=== PATIENT | female | born 1985 | race Caucasian/White ===

== ENCOUNTER 2019-07-11 13:36 | Outpatient (REF) | payer SELFPAY | END 2019-07-11 13:56 | LOC: LBN 13:36 | PROVIDERS: PCP Internal Medicine Hematology; Visit Provider Physician Assistant Medical | DX: R10.30 Lower abdominal pain, unspecified (principal) | CPT/HCPCS: 87480; 87510; 87660 ==

== ENCOUNTER 2019-10-21 11:52 | Emergency (ER) | payer SELFPAY ==
[2019-10-21 11:57] VITALS: BP 123/48; PULSE 78; RESP 16; TEMP 36.9; O2SAT 100
[2019-10-21 12:10] LABS: Bilirubin Negative (Negative); Blood Negative (Negative); Clarity Clear (Clear); Glucose Negative (Negative); Ketones Negative (Negative); Leukocyte Esterase Negative (Negative); Nitrite Negative (Negative); Specific Gravity 1.015 (1.005-1.025); Urobilinogen 0.2 EU/dL (Up TO 0.2)
--- NOTE | 2019-10-21 12:31 | ED.GENADUL_ITS ---
Discharge Plan Disposition Patient Disposition: HOME Condition: Stable Discharge Details Chief Complaint: Urinary Clinical Impression: Acute flank pain Primary Care Provider: Gary Knapp ED Provider: Santo Causey Home Meds and New Rx's Prescriptions: No Action No Known Home Meds RF: 0 Discharge Instructions Instructions: Flank Pain (ED) Additional Instructions: Please take acetaminophen (tylenol) - 650mg every 6 hours by mouth as needed for pain. Please contact your primary care physician to arrange follow-up.Call on Tuesday. Return to the ER for any worsening or new concerning symptoms or if you feel further diagnostic workup is warranted. Medical Decision Making 33-year-old female here with left flank discomfort for the past 3-4 days. Does not currently have urinary symptoms but did have some discomfort with urination prior to recent menses 2 weeks ago. Vitals are within normal limits. Exam is reassuring. Patient has no abnormal vaginal discharge, vaginal bleeding, vaginal pain or any other indication for pelvic exam. I considered urinary tract infection: Urinalysis is completely negative with no indication of UTI. I will send urine culture given symptoms. I discussed treatment plan with patient and determined that we would wait for urine culture results to determine if antibiotics are needed. I discussed with the patient potential for other etiologies for discomfort and recommended diagnostic imaging including CT imaging to assess for potential mass or renal stone. Patient provided informed refusal of diagnostic imaging. She notes she would prefer to give it a few more days and follow-up with PCP. I did encourage her to return immediately should symptoms worsen or she develop new co ncerning symptoms or if she would like to pursue additional recommended diagnostics. HPI General Mode of arrival: ambulatory . Date/Time Provider Initiated Documentation: 10/21/19 12:11 . Limitations to Documentation: no limitations . Information obtained by: patient . HPI Narrative: 33-year-old female presents with chief complaint of flank pain. Patient notes pain started 3 to 4 days ago and has persisted. Pain was initially moderate and is now mild. Pain localized to left flank. Pain is described as a light burning ache. No associate abdominal pain. No associated dysuria or hematuria. No increased urinary frequency. No nausea or vomiting. No recent weight loss. Patient notes that she did have some urinary symptoms including discomfort with urination about 2 weeks ago prior to her period. Symptoms resolved with onset of period. She notes normal menstrual flow. She denies abnormal vaginal discharge. No vaginal or pelvic pain. Related Data Home Medications Medication Instructions Recorded Confirmed Unknown [No Known Home Meds] 10/21/19 10/21/19 Allergies Allergy/AdvReac Type Severity Reaction Status Date / Time amoxicillin trihydrate AdvReac Intermediate diarrhea Unverified 10/21/19 12:03 [From Augmentin] Penicillins AdvReac Intermediate really bad Unverified 10/21/19 12:03 yeast infection potassium clavulanate AdvReac Intermediate diarrhea Unverified 10/21/19 12:03 [From Augmentin] General Stated Complaint: Urinary BETHANY: 3 Review of Systems All systems reviewed & are unremarkable except as noted in HPI and below Constitutional Constitutional: Denies fever(s) Gastrointestinal Gastrointestinal: Denies diarrhea, Denies nausea and Denies vomiting Genitourinary Genitourinary: Reports as per HPI, Denies abnormal vaginal bleeding, Denies menorrhagia, Denies urinary urgency and Denies vaginal discharge PFSH Social History Smoking/Tobacco Use Status: Never Alcohol Intake: current Alcohol Intake frequency: a few times a week Drug use: Never Substance use type: does not use Do you feel safe at home: Yes Do you feel safe in your relationship?: Yes Exam Const General: cooperative and no acute distress HENMT Mouth: moist mucous membranes Eyes Conjunctivae: normal conjunctivae Sclera: normal sclerae EOM: EOM intact bilaterally Neck Neck: trachea midline and supple Resp Auscultation: clear to auscultation bilaterally, no rales, no rhonchi and no wheezes Cardio Jugular venous pressure: no JVD Rate: regular rate and not tachycardic Rhythm: regular rhythm GI Palpation: soft, not firm, no guarding, no masses, not rigid and nontender Back/Spine/Pelvis Back: no CVA tenderness Skin General skin exam: no rashes or lesions noted Neuro General: patient alert, patient awake and tone normal Extrem General: no edema Psych Appearance: grossly normal Mental Status: mental status grossly normal Course Vital Signs Vital signs: Vital Signs Temperature 36.9 C 10/21/19 11:57 Pulse 78 10/21/19 11:57 Respiratory Rate 16 10/21/19 11:57 Blood Pressure 123/48 L 10/21/19 11:57 Pulse Oximetry 100 10/21/19 11:57 Temperature 36.9 C 10/21/19 11:57 Temperature Source Temporal Artery Scan 10/21/19 11:57 Pulse 78 10/21/19 11:57 Respiratory Rate 16 10/21/19 11:57 Respiratory Effort Non-Labored 10/21/19 12:05 Blood Pressure 123/48 L 10/21/19 11:57 Blood Pressure Position Sitting 10/21/19 11:57 Pulse Oximetry 100 10/21/19 11:57 Oxygen Delivery Method Room Air 10/21/19 11:57 Oxygen Flow Rate 0 10/21/19 11:57 Pain Level 2 10/21/19 12:05 Lab/Test Results Lab/Test Results: Laboratory Tests Range/Units 10/21/19 11:59 Urine Color (Yellow) Yellow Urine Clarity (Clear) Clear Urine pH (5-8) 7.0 Ur Specific [place] (1.005-1.025) 1.015 Urine Protein (Negative) mg/dL Negative Urine Ketones (Negative) mg/dL Negative Urine Blood (Negative) Negative Urine Nitrite (Negative) Negative Urine Bilirubin (Negative) Negative Urine Urobilinogen (Up TO 0.2) EU/dL 0.2 Ur Leukocyte Esterase (Negative) Negative Urine Glucose (Negative) mg/dL Negative POC- Test(urine) Negative
== END 2019-10-21 12:41 | disposition home or self-care (01) ==
PROVIDERS: Emergency Provider Student in an Organized Health Care Education/Training Program; PCP Internal Medicine Hematology
DX: M54.5 Low back pain (principal)
CPT/HCPCS: 81025; 99282; 81003; 87086

== ENCOUNTER 2019-10-29 13:41 | Emergency (ER) | payer SELFPAY ==
[2019-10-29] VITALS (47 sets, daily range): BP systolic 67–129; BP diastolic 29–88; PULSE 67–115; RESP 14–31; TEMP 36.6; O2SAT 98–100
--- NOTE | 2019-10-29 14:00 | DI.RAD_ITS ---
EXAM: XR PORTABLE CHEST AP CLINICAL HISTORY: chest pressure/sob TECHNIQUE: 2D digital imaging was performed. COMPARISON: No exams were available for comparison FINDINGS: MEDIASTINUM: Normal. HEART: Normal. PULMONARY VASCULATURE: Normal. LUNGS: Clear. PLEURAL SPACE: No pleural effusion or pneumothorax. BONE:Normal. OTHER FINDINGS:Normal. IMPRESSION: No acute pulmonary findings. DATA REPOSITORY: RADIATION DOSE DELIVERED:
[2019-10-29 14:25] LABS: Abs Immature Grans 0.04 k/cumm (0.0-0.09); Absolute Basophil Count 0.02 k/cumm (0.0-0.2); Absolute Eosinophil Count 0.04 k/cumm (0.0-0.7); Absolute Lymphocyte Count 1.86 k/cumm (1.2-3.4); Basophils % 0.2; Eosinophils % 0.4; HCT 41.8 % (36.0-46.0); HGB 14.4 g/dL (12.0-15.5); Immature Grans % 0.4 %; Lymphocytes % 19.7; Mean Corp. HGB Concentration 34.4 g/dL (32.0-36.0); Mean Corpuscular Hemoglobin 29.9 pg (27.0-33.0); Mean Corpuscular Volume 86.9 fL (80-95); Mean Platelet Volume 10.1 fL (8.0-11.0); Monocytes % 5.3; Platelet Count 328 x1000/uL (130-400); RBC 4.81 m/cumm (4.00-5.20); RBC Distribution Width 11.8 % (11.7-14.6); White Blood Cell Count 9.46 k/cumm (4.4-10.8)
[2019-10-29 14:31] LABS: Bilirubin Negative (Negative); Blood Negative (Negative); Clarity Clear (Clear); Glucose Negative (Negative); Ketones Trace mg/dL (Negative); Leukocyte Esterase Negative (Negative); Nitrite Negative (Negative); Urobilinogen 0.2 EU/dL (Up TO 0.2); pH 6.5 (5-8)
[2019-10-29 14:37] LABS: ALT 23 U/L (14-59); AST 20 U/L (15-37); Albumin 4.5 g/dL (3.4-5.0); Alkaline Phosphatase 77 U/L (46-116); Anion Gap 11.3 mmol/L (3-11); BUN 10 mg/dL (7-18); Bilirubin, Total 1.1 mg/dL (0.2-1.0); CO2 24.7 mmol/L (21.0-32.0); CREATININE 0.98 mg/dL (0.55-1.02); Calcium 9.4 mg/dL (8.5-10.1); Chloride 101 mmol/L (98-107); Glucose 92 mg/dL (74-106); Magnesium 2.3 mg/dL (1.8-2.4); Potassium 3.3 mmol/L (3.5-5.1); Sodium 137 mmol/L (136-145); Total Protein 7.7 g/dL (6.4-8.2); Troponin I < 0.05 ng/Ml (<0.06)
[2019-10-29 14:53] LABS: D-Dimer 174 ng/mlFEU (<500)
[2019-10-29] MEDS: Normal Saline 1,000 ML 1000 ML IV (16:00)
--- NOTE | 2019-10-29 16:07 | ED.GENADUL_ITS ---
Discharge Plan Disposition Patient Disposition: HOME Condition: Good Discharge Details Chief Complaint: SOB Clinical Impression: Chest pain, Shortness of breath Primary Care Provider: Gary Knapp ED Provider: Randa Vega Home Meds and New Rx's Prescriptions: No Action No Known Home Meds RF: 0 Discharge Instructions Instructions: Chest Pain (ED), Dyspnea (ED) Additional Instructions: Your laboratory evaluation was reassuring today. However, and remain concerned regarding your chest pain associated with recent cocaine use. You will need an outpatient stress test. This will be ordered. They should call you tomorrow to schedule follow-up appointment. If you develop recurrent discomfort, difficulty breathing or other new/worsening symptom please seek care urgently once again. Please stop using cocaine. Please follow-up with primary care at the end of the week for reevaluation. with shortness of breath, you have a pending COVID 19 test. Test will be performed tomorrow in the red tent. You will be contacted in the morning to schedule appointment time. Until results are obtained, please quarantine yourself. Develop new or worsening symptoms please seek care urgently once again. Stand Alone Forms: POSITIVE COVID-19/TO BE TESTED Referrals: Gary Knapp [Primary Care Provider] - Discharge Data Discharge Date/Time-TO BE ENTERED AT DEPARTURE: 10/29/19 18:16 Medical Decision Making <PEDRO Gutierrez - Last Filed: 10/30/19 16:10> 33-year-old female, no past medical history, began snorting cocaine over the past 2 weeks, comes into the ER reporting 4-day history of dull anterior chest dullness now with shortness of breath over the last 2 days. Patient appears well, nontoxic. She is slightly anxious. Patient outside of using cocaine has no other cardiac risk factors. She is not on hormone therapy. Given her mild tachycardia will order d-dimer to her rule out PE although low suspicion. We did have a discussion regarding her cocaine use, vasospasms, chest pain, etc. She understands the gravity of the situation. Will initiate cardiac work-up including chest x-ray. Given her subjective complaint of shortness of breath will make her a person of interest and will set her up with COVID testing tomorrow. Low suspicion for infectious process. Patient is satting 100% on room air. Lungs are clear to auscultation. There is no cough. Will not initiate aspirin therapy as lower suspicion for ACS. I do question if this is multifactorial, she has been seen in the ER twice in the past 8 days after using cocaine, she does appear anxious. Heart rate is noted to be 80 on the monitors. I do question if her anxiety was driven by evaluation with nurses and provider in a mask, gown, full protective gear. Laboratory values reveal a white count of 9.46 hemoglobin 14.4 hematocrit 41.8 platelet count 328. Sodium 137 potassium 3.3 creatinine 0.98 GFR greater than 60. Total bili is 1.1. Abdomen is soft, nontender LFTs are unremarkable. Urinalysis reveals trace ketones, POC is negative. Troponin is less than 0.05. D-dimer 174. Chest x-ray is unremarkable. Upon reevaluation patient is using her cell phone without difficulty. She appears well, nontoxic and no longer anxious. We discussed our options. Patient is agreeable to waiting in the ER and having a 3-hour repeat troponin and EKG. Medical Records Medical records reviewed: Yes I reviewed the patient's medical records. Imaging Data Radiologic Study: Attestation: I personally reviewed and interpreted this imaging study as follows: Imaging: X-Ray Radiologist's impression: Initially read by me as negative, confirmed by radiology. Lab Data Lab results reviewed: Yes I reviewed the patient's lab results. Lab results narrative: Laboratory Tests Range/Units 10/29/19 10/29/19 10/29/19 13:57 13:57 13:57 WBC (4.4-10.8) k/cumm 9.46 RBC (4.00-5.20) m/cumm 4.81 Hgb (12.0-15.5) g/dL 14.4 Hct (36.0-46.0) % 41.8 MCV (80-95) fL 86.9 MCH (27.0-33.0) pg 29.9 MCHC (32.0-36.0) g/dL 34.4 RDW (11.7-14.6) % 11.8 Plt Count (130-400) x1000/uL 328 MPV (8.0-11.0) fL 10.1 Immature Gran % % 0.4 Neutrophils % 74.0 Lymphocytes % 19.7 Monocytes % 5.3 Eosinophils % 0.4 Basophils % 0.2 Absolute Neutrophils (1.2-6.7) k/cumm 7.00 H Absolute Lymphocytes (1.2-3.4) k/cumm 1.86 Absolute Monocytes (0.11-0.7) k/cumm 0.50 Absolute Eosinophils (0.0-0.7) k/cumm 0.04 Absolute Basophils (0.0-0.2) k/cumm 0.02 D-Dimer (<500) ng/mlFEU 174 Sodium (136-145) mmol/L 137 Potassium (3.5-5.1) mmol/L 3.3 L Chloride (98-107) mmol/L 101 Carbon Dioxide (21.0-32.0) mmol/L 24.7 Anion Gap (3-11) mmol/L 11.3 H BUN (7-18) mg/dL 10 Creatinine (0.55-1.02) mg/dL 0.98 Estimated GFR/1.73 m2 (mL/min/1.73m2) >= 60.00 Glucose (74-106) mg/dL 92 Calcium (8.5-10.1) mg/dL 9.4 Magnesium (1.8-2.4) mg/dL 2.3 Total Bilirubin (0.2-1.0) mg/dL 1.1 H AST (15-37) U/L 20 ALT (14-59) U/L 23 Alkaline Phosphatase (46-116) U/L 77 Troponin I (<0.06) ng/Ml < 0.05 Total Protein (6.4-8.2) g/dL 7.7 Albumin (3.4-5.0) g/dL 4.5 Urine Color (Yellow) Urine Clarity (Clear) Urine pH (5-8) Ur Specific [place] (1.005-1.025) Urine Protein (Negative) mg/dL Urine Ketones (Negative) mg/dL Urine Blood (Negative) Urine Nitrite (Negative) Urine Bilirubin (Negative) Urine Urobilinogen (Up TO 0.2) EU/dL Ur Leukocyte Esterase (Negative) Urine Glucose (Negative) mg/dL Range/Units 10/29/19 14:12 WBC (4.4-10.8) k/cumm RBC (4.00-5.20) m/cumm Hgb (12.0-15.5) g/dL Hct (36.0-46.0) % MCV (80-95) fL MCH (27.0-33.0) pg MCHC (32.0-36.0) g/dL RDW (11.7-14.6) % Plt Count (130-400) x1000/uL MPV (8.0-11.0) fL Immature Gran % % Neutrophils % Lymphocytes % Monocytes % Eosinophils % Basophils % Absolute Neutrophils (1.2-6.7) k/cumm Absolute Lymphocytes (1.2-3.4) k/cumm Absolute Monocytes (0.11-0.7) k/cumm Absolute Eosinophils (0.0-0.7) k/cumm Absolute Basophils (0.0-0.2) k/cumm D-Dimer (<500) ng/mlFEU Sodium (136-145) mmol/L Potassium (3.5-5.1) mmol/L Chloride (98-107) mmol/L Carbon Dioxide (21.0-32.0) mmol/L Anion Gap (3-11) mmol/L BUN (7-18) mg/dL Creatinine (0.55-1.02) mg/dL Estimated GFR/1.73 m2 (mL/min/1.73m2) Glucose (74-106) mg/dL Calcium (8.5-10.1) mg/dL Magnesium (1.8-2.4) mg/dL Total Bilirubin (0.2-1.0) mg/dL AST (15-37) U/L ALT (14-59) U/L Alkaline Phosphatase (46-116) U/L Troponin I (<0.06) ng/Ml Total Protein (6.4-8.2) g/dL Albumin (3.4-5.0) g/dL Urine Color (Yellow) Yellow Urine Clarity (Clear) Clear Urine pH (5-8) 6.5 Ur Specific [place] (1.005-1.025) 1.010 Urine Protein (Negative) mg/dL Negative Urine Ketones (Negative) mg/dL Trace H Urine Blood (Negative) Negative Urine Nitrite (Negative) Negative Urine Bilirubin (Negative) Negative Urine Urobilinogen (Up TO 0.2) EU/dL 0.2 Ur Leukocyte Esterase (Negative) Negative Urine Glucose (Negative) mg/dL Negative ECG Data Attestation: I personally reviewed and interpreted this ECG (s) as follows: Interpretation: EKG performed at 1349. Reveals sinus tachycardia, short DE syndrome of 92. Ventricular rate of 103. There is an incomplete right bundle branch block but no acute ST elevation or depression segments. EKG was reviewed interpreted with Dr. Causey <Jacey Causey MD - Last Filed: 10/29/19 18:03> I, Jacey Causey, seen and examined the patient. I concur with the findings as documented by the PA; please see initial history and physical. Agree with plan outpatient follow-up with patient, testing, outpatient stress test. I had a lengthy discussion with Patient regarding return to emergency department precautions, home care, and importance of outpatient follow-up. Pt verbalizes understanding of the plan and is amenable. Patient discharged to home with clear plan for outpatient follow-up. All questions were answered. Disposition decision was made weighing the risks and benefits of hospitalization versus outpatient treatment, the risk for further decompensation, and the patient's wishes. Medical Records Medical records reviewed: Yes I reviewed the patient's medical records. Lab Data Lab results reviewed: Yes I reviewed the patient's lab results. ECG Data Attestation: I personally reviewed and interpreted this ECG (s) as follows: Interpretation: EKG shows sinus rhythm 85, normal axis, no major change from prior, no STEMI, nondiagnostic EKG <PEDRO Albarado - Last Filed: 10/29/19 21:34> Care transition to myself from John Allen PA-C with repeat troponin and repeat EKG pending. In brief, patient presented today, 1 week after cocaine use, with chief complaint of chest discomfort 4 days ago and shortness of breath x2 days. She states that she is been asymptomatic thus far today. She was notably anxious when initially examined. Aside from the recent cocaine use, no other cardiac risk factors. Patient denies routine cocaine use. Patient's labs reveal negative d-dimer, minimally low potassium at 3.3, troponin less than 0.05?2. EKG reviewed by Dr. Causey without significant abnormality. No ischemic changes are noted. Discussed these findings with the patient. With the recent cocaine use, plan for outpatient stress test. With the shortness of breath, John Allen had ordered outpatient COVID-19 testing. By the time of discharge, she is asymptomatic. She will quarantine until results are back from her [facility] testing. She is given return precautions. She will be contacted tomorrow from the COVID testing tent as well as scheduling for outpatient stress test. I encouraged that she call primary care to schedule follow-up appointment this week. I encourage cessation from cocaine use. All of her questions and concerns were addressed and she is in agreement with this plan. HPI <PEDRO Gutierrez - Last Filed: 10/30/19 16:10> General Mode of arrival: ambulatory . Date/Time Provider Initiated Documentation: 10/29/19 13:45 . Limitations to Documentation: no limitations . Information obtained by: patient . HPI Narrative: This is a 33-year-old female who denies any past medical history. She was seen in the ER 8 days ago for flank pain but that has resolved completely. She reports 4 days ago she noticed a anterior chest dullness,. She reports is not necessarily really painful but more aching in nature. Nothing makes it worse or better. It comes intermittently. Now over the past 2 days she reports mild shortness of breath that come sporadically, nothing she can do to make it worse or better. She den ies any headache, neck pain, recent travel or sick contact, cough, abdominal pain, back pain, nausea, vomiting, numbness, tingling, weakness. She has never had these symptoms before. She denies any cardiac history in her family. Patient does admit that she and her started to experiment with cocaine over the past 2 weeks, she believes the last time she uses roughly 1 week ago. She denies any other drug use, denies any IV drug use. She denies smoking cigarettes but does occasionally use marijuana. She has not on any hormone therapy. Denies any pain or swelling in her legs. Related Data Home Medications Medication Instructions Recorded Confirmed Unknown [No Known Home Meds] 10/21/19 10/29/19 Allergies Allergy/AdvReac Type Severity Reaction Status Date / Time amoxicillin trihydrate AdvReac Intermediate diarrhea Unverified 10/29/19 13:52 [From Augmentin] Penicillins AdvReac Intermediate really bad Unverified 10/29/19 13:52 yeast infection potassium clavulanate AdvReac Intermediate diarrhea Unverified 10/29/19 13:52 [From Augmentin] General Stated Complaint: SOB BETHANY: 3 Review of Systems <PEDRO Gutierrez - Last Filed: 10/30/19 16:10> Constitutional Constitutional: Denies fatigue, Denies fever(s) and Denies weakness ENT Ears, Nose, Mouth, and Throat: Denies dizziness Cardiovascular Cardiovascular: Reports chest pain and Reports dyspnea Respiratory Respiratory: Denies cough and Reports dyspnea Gastrointestinal Gastrointestinal: Denies abdominal pain, Denies nausea and Denies vomiting Genitourinary Genitourinary: Denies dysuria Musculoskeletal Musculoskeletal: Denies back pain, Denies numbness and Denies tingling Integumentary/Breasts Skin/Breast: Denies rash Neurologic Neurologic: Denies dizziness, Denies numbness, Denies tingling and Denies weakness Endocrine Endocrine: Denies fatigue PFSH <PEDRO Gutierrez - Last Filed: 10/30/19 16:10> Social History Smoking/Tobacco Use Status: Never Alcohol Intake: current Alcohol Intake frequency: a few times a week Drug use: Occasionally Substance use type: marijuana Do you feel safe at home: Yes Do you feel safe in your relationship?: Yes Exam <PEDRO Gutierrez - Last Filed: 10/30/19 16:10> Const General: cooperative, healthy appearing, comfortable, no acute distress and anxious (Mild) Orientation: alert, awake and oriented x3 HENMT Head: normal to inspection, normocephalic and atraumatic Ears: external ears normal, TM's normal bilaterally and EAC's normal Face and sinus: normal facial exam Mouth: moist mucous membranes Throat: posterior oropharynx normal Eyes Conjunctivae: conjunctivae normal Neck Neck: normal visual inspection, full ROM, trachea midline, supple and nontender Chest Chest: normal inspection of the chest and normal palpation of entire chest wall Resp Effort & Inspection: normal respiratory effort and able to speak in complete sentences Auscultation: clear to auscultation bilaterally Cardio Rate: tachycardic Rhythm: regular rhythm (Rate of 108) GI Palpation: soft and nontender Auscultation: normal bowel sounds Back/Spine/Pelvis Back: No back tenderness Skin General skin exam: no rashes or lesions noted Neuro General: patient alert, patient awake, patient oriented x3, moves all extremities and no focal motor deficits Gait: normal gait Motor: muscle tone normal throughout Sensory Exam: no sensory deficits noted Extrem General: normal to inspection, full ROM, capillary refill normal, no pedal edema and no calf tenderness Psych Appearance: grossly normal Mental Status: mental status grossly normal Course <PEDRO Gutierrez - Last Filed: 10/30/19 16:10> Vital Signs Vital signs: Vital Signs Temperature 36.6 C 10/29/19 13:49 Pulse 107 H 10/29/19 13:49 Respiratory Rate 18 10/29/19 13:49 Blood Pressure 124/75 10/29/19 13:49 Pulse Oximetry 100 10/29/19 13:49 Temperature 36.6 C 10/29/19 13:49 Temperature Source Skin 10/29/19 13:49 Pulse 73 10/29/19 15:46 Pulse 76 10/29/19 16:00 Respiratory Rate 18 10/29/19 16:00 Respiratory Effort Non-Labored 10/29/19 14:02 Respiratory Depth Normal 10/29/19 14:02 Respiratory Pattern Normal 10/29/19 14:02 Blood Pressure 116/73 10/29/19 15:46 Blood Pressure Mean 82 10/29/19 15:46 Blood Pressure Position Sitting 10/29/19 13:49 Pulse Oximetry 100 10/29/19 15:46 Oxygen Delivery Method Room Air 10/29/19 13:49 Oxygen Flow Rate 0 10/29/19 13:49 Pain Level 2 10/29/19 14:02 Lab/Test Results Lab/Test Results: Laboratory Tests Range/Units 10/29/19 10/29/19 10/29/19 13:57 13:57 13:57 WBC (4.4-10.8) k/cumm 9.46 RBC (4.00-5.20) m/cumm 4.81 Hgb (12.0-15.5) g/dL 14.4 Hct (36.0-46.0) % 41.8 MCV (80-95) fL 86.9 MCH (27.0-33.0) pg 29.9 MCHC (32.0-36.0) g/dL 34.4 RDW (11.7-14.6) % 11.8 Plt Count (130-400) x1000/uL 328 MPV (8.0-11.0) fL 10.1 Immature Gran % % 0.4 Neutrophils % 74.0 Lymphocytes % 19.7 Monocytes % 5.3 Eosinophils % 0.4 Basophils % 0.2 Absolute Neutrophils (1.2-6.7) k/cumm 7.00 H Absolute Lymphocytes (1.2-3.4) k/cumm 1.86 Absolute Monocytes (0.11-0.7) k/cumm 0.50 Absolute Eosinophils (0.0-0.7) k/cumm 0.04 Absolute Basophils (0.0-0.2) k/cumm 0.02 D-Dimer (<500) ng/mlFEU 174 Sodium (136-145) mmol/L 137 Potassium (3.5-5.1) mmol/L 3.3 L Chloride (98-107) mmol/L 101 Carbon Dioxide (21.0-32.0) mmol/L 24.7 Anion Gap (3-11) mmol/L 11.3 H BUN (7-18) mg/dL 10 Creatinine (0.55-1.02) mg/dL 0.98 Estimated GFR/1.73 m2 (mL/min/1.73m2) >= 60.00 Glucose (74-106) mg/dL 92 Calcium (8.5-10.1) mg/dL 9.4 Magnesium (1.8-2.4) mg/dL 2.3 Total Bilirubin (0.2-1.0) mg/dL 1.1 H AST (15-37) U/L 20 ALT (14-59) U/L 23 Alkaline Phosphatase (46-116) U/L 77 Troponin I (<0.06) ng/Ml < 0.05 Total Protein (6.4-8.2) g/dL 7.7 Albumin (3.4-5.0) g/dL 4.5 Urine Color (Yellow) Urine Clarity (Clear) Urine pH (5-8) Ur Specific [place] (1.005-1.025) Urine Protein (Negative) mg/dL Urine Ketones (Negative) mg/dL Urine Blood (Negative) Urine Nitrite (Negative) Urine Bilirubin (Negative) Urine Urobilinogen (Up TO 0.2) EU/dL Ur Leukocyte Esterase (Negative) Urine Glucose (Negative) mg/dL Range/Units 05/18/20 14:12 WBC (4.4-10.8) k/cumm RBC (4.00-5.20) m/cumm Hgb (12.0-15.5) g/dL Hct (36.0-46.0) % MCV (80-95) fL MCH (27.0-33.0) pg MCHC (32.0-36.0) g/dL RDW (11.7-14.6) % Plt Count (130-400) x1000/uL MPV (8.0-11.0) fL Immature Gran % % Neutrophils % Lymphocytes % Monocytes % Eosinophils % Basophils % Absolute Neutrophils (1.2-6.7) k/cumm Absolute Lymphocytes (1.2-3.4) k/cumm Absolute Monocytes (0.11-0.7) k/cumm Absolute Eosinophils (0.0-0.7) k/cumm Absolute Basophils (0.0-0.2) k/cumm D-Dimer (<500) ng/mlFEU Sodium (136-145) mmol/L Potassium (3.5-5.1) mmol/L Chloride (98-107) mmol/L Carbon Dioxide (21.0-32.0) mmol/L Anion Gap (3-11) mmol/L BUN (7-18) mg/dL Creatinine (0.55-1.02) mg/dL Estimated GFR/1.73 m2 (mL/min/1.73m2) Glucose (74-106) mg/dL Calcium (8.5-10.1) mg/dL Magnesium (1.8-2.4) mg/dL Total Bilirubin (0.2-1.0) mg/dL AST (15-37) U/L ALT (14-59) U/L Alkaline Phosphatase (46-116) U/L Troponin I (<0.06) ng/Ml Total Protein (6.4-8.2) g/dL Albumin (3.4-5.0) g/dL Urine Color (Yellow) Yellow Urine Clarity (Clear) Clear Urine pH (5-8) 6.5 Ur Specific [place] (1.005-1.025) 1.010 Urine Protein (Negative) mg/dL Negative Urine Ketones (Negative) mg/dL Trace H Urine Blood (Negative) Negative Urine Nitrite (Negative) Negative Urine Bilirubin (Negative) Negative Urine Urobilinogen (Up TO 0.2) EU/dL 0.2 Ur Leukocyte Esterase (Negative) Negative Urine Glucose (Negative) mg/dL Negative POC- Test(urine) Negative Sign Out <PEDRO Gutierrez - Last Filed: 10/30/19 16:10> Sign Out Data: Sign Out Comment: Anterior chest pressure x4 days, shortness of breath x2 days. Patient recently began experimenting with cocaine. She appears well, nontoxic but is slightly anxious. Initial evaluation is unremarkable. Upon reevaluation she is calm, no longer anxious, heart rate in the 80s. She is agreeable to a repeat troponin and EKG in a 3-hour timeframe. Last updated by Chucho Allen PA at 10/29/19 16:19
[2019-10-29 17:22] LABS: Troponin I < 0.05 ng/Ml (<0.06)
== END 2019-10-29 18:16 | disposition home or self-care (01) ==
PROVIDERS: Physician Assistant; Emergency Provider Physician Assistant; PCP Internal Medicine Hematology
DX: R06.02 Shortness of breath (principal); E87.6 Hypokalemia; R07.9 Chest pain, unspecified; F14.10 Cocaine abuse, uncomplicated
CPT/HCPCS: 36415; 80053; 81025; 93005; 96360; 96361; 99284; 71045; 81003; 83735; 84484; 85025; 85379; 93010

== ENCOUNTER 2019-10-30 10:00 | Outpatient (CLI) | payer SELFPAY ==
[2019-10-31 15:22] LABS: COVID-19 RT-PCR Result NEGATIVE (Negative)
--- NOTE | 2019-11-07 10:43 | NUR.NOTE ---
patient contacted and message left to contact me at [phone]. Nursing Note:
--- NOTE | 2019-11-07 13:53 | NUR.NOTE ---
patient aware of negative Covid results. Nursing Note:
== END 2019-10-30 10:20 ==
PROVIDERS: PCP Internal Medicine Hematology; Visit Provider Physician Assistant
DX: Z11.59 Encounter for screening for other viral diseases (principal)
CPT/HCPCS: U0003

== ENCOUNTER 2019-11-05 18:47 | Emergency (ER) | payer SELFPAY ==
[2019-11-05 18:51] VITALS: BP 124/69; PULSE 78; RESP 18; TEMP 36.8; O2SAT 95
--- NOTE | 2019-11-05 18:59 | ED.GENADUL_ITS ---
Discharge Plan Disposition Patient Disposition: HOME Condition: Stable Discharge Details Chief Complaint: Laceration Clinical Impression: Laceration, Cellulitis Primary Care Provider: Gary Knapp ED Provider: Jacey Causey Home Meds and New Rx's Prescriptions: New cephalexin [Keflex] 500 mg capsule 500 mg PO QID Qty: 39 RF: 0 Discharge Instructions Instructions: Laceration (ED), Cellulitis (ED) Additional Instructions: Please return immediately to the emergency department if you develop any new or worsening symptoms, if your condition does not improve as expected, or if you become otherwise concerned. It is extremely important that you call soon as possible to make an appointment to be seen in follow-up for this visit by your primary care doctor. Discharge Data Discharge Date/Time-TO BE ENTERED AT DEPARTURE: 11/05/19 20:20 Medical Decision Making Louise Castillo is a 33-year-old woman without reported history of major medical problems who presented to the emergency department for tetanus update for cut to right anterior forearm. On exam patient is very well and nontoxic-appearing. There is a approximately 6 cm superficial laceration to the right anterior forearm that is healing well. 1 cm surrounding erythema with mild tenderness. No fluctuance or induration, no edema, no drainage, no streaking. Exam/history is not consistent with abscess, sepsis, compartment syndrome, other acute emergent life or limb threatening pathology. Record review shows last tetanus 2012. Given possible contaminated wound with floorboard nail from a horse barn, will update tetanus at this time. Plan for Keflex for mild erythema and likely cellulitis. Patient states she has diarrhea with penicillins and states that she believes she has been on Keflex in the past without issue. Will observe for 20 minutes after administering med. I had a lengthy discussion with Patient regarding return to emergency department precautions, home care, and importance of outpatient follow-up. Pt verbalizes understanding of the plan and is amenable. Patient discharged to home with clear plan for outpatient follow-up. All questions were answered. Disposition decision was made weighing the risks and benefits of hospitalization versus outpatient treatment, the risk for further decompensation, and the pa tient's wishes. Medical Records Medical records reviewed: Yes I reviewed the patient's medical records. HPI General Mode of arrival: ambulatory . Date/Time Provider Initiated Documentation: 11/05/19 18:49 . Limitations to Documentation: no limitations . Information obtained by: patient, RN notes reviewed and old records reviewed . HPI Narrative: Louise Castillo is a 33-year-old woman without reported history of major medical problems presenting to the emergency department with cut. Patient reports that 2 days ago she was pulling up floorboards in a horse barn, when she pulled up a board with a nail that cut her on the right anterior forearm. Patient reports she cleaned wound well at the time, bleeding stopped easily. Patient reports that she is concerned that she does not know when her last tetanus shot is. Patient also reports that she has developed some redness and mild pain around the site of the wound. She denies any discharge from the wound. Patient reports that she feels otherwise very well and in her usual state of health. No fever, no other pain, no vomiting, no diarrhea, no numbness, no weakness, no other wound or injury. Has been eating and drinking as usual. Related Data Home Medications Medication Instructions Recorded Confirmed cephalexin [Keflex] 500 mg PO QID #39 cap 11/05/19 Previous Rx's Medication Instructions Recorded cephalexin [Keflex] 500 mg PO QID #39 cap 11/05/19 Allergies Allergy/AdvReac Type Severity Reaction Status Date / Time amoxicillin trihydrate AdvReac Intermediate diarrhea Unverified 11/05/19 18:53 [From Augmentin] Penicillins AdvReac Intermediate really bad Unverified 11/05/19 18:53 yeast infection potassium clavulanate AdvReac Intermediate diarrhea Unverified 11/05/19 18:53 [From Augmentin] General Stated Complaint: Laceration BETHANY: 4 Review of Systems Narrative: Constitutional: denies fevers Eyes: denies eye pain ENT: denies ear pain, dental pain, sore throat Cardiovascular: denies chest pain Respiratory: denies SOB, cough GI: denies abdominal pain, vomiting, diarrhea : denies flank pain MSK: denies back pain, neck pain, arthralgias, myalgias Skin: denies rash, reports wound as per HPI Neuro: denies headaches, numbness, weakness PFSH Social History Smoking/Tobacco Use Status: Never Alcohol Intake: current Alcohol Intake frequency: a few times a week Drug use: Occasionally Substance use type: marijuana Do you feel safe at home: Yes Do you feel safe in your relationship?: Yes Exam Narrative Exam Narrative: Constitutional: well and [id number], pleasant, conversing normally HENT: head atraumatic/normocephalic/normal inspection, mucous membranes moist Eyes: conjunctiva normal, sclera normal, pupils 3mm b/l Neck: no stridor, normal ROM, trachea midline Chest: normal inspection Resp: normal work of breathing Cardio: normal rate, normal rhythm, radial pulses intact and symmetric Skin: warm, dry, normal color, no rash Neuro: alert, not altered, grossly non-focal, normal tone Ext: no edema, right anterior forearm with 6cm superficial laceration, healing well, 1cm surrounding erythema with scant TTP, no fluctuance or induration, no edema, no drainage, no streaking. Does not cross elbow or wrist joint. Full painless ROM elbow and wrist. Psych: normal mood, normal affect, normal behavior Course Vital Signs Vital signs: Vital Signs Temperature 36.8 C 11/05/19 18:51 Pulse 78 11/05/19 18:51 Respiratory Rate 18 11/05/19 18:51 Blood Pressure 124/69 11/05/19 18:51 Pulse Oximetry 95 11/05/19 18:51 Temperature 36.8 C 11/05/19 18:51 Temperature Source Temporal Artery Scan 11/05/19 18:51 Pulse 78 11/05/19 18:51 Respiratory Rate 18 11/05/19 18:51 Respiratory Effort Non-Labored 11/05/19 18:53 Blood Pressure 124/69 11/05/19 18:51 Pulse Oximetry 95 11/05/19 18:51 Oxygen Delivery Method Room Air 11/05/19 18:51 Oxygen Flow Rate 0 11/05/19 18:51 Pain Level 0 11/05/19 18:53
[2019-11-05 19:59] VITALS: BP 124/69; PULSE 78; RESP 18; TEMP 36.8; O2SAT 95
[2019-11-05] MEDS: Cephalexin 500 MG CAP 1000 MG PO (20:18)
== END 2019-11-05 20:20 | disposition home or self-care (01) ==
PROVIDERS: Emergency Provider Student in an Organized Health Care Education/Training Program; PCP Internal Medicine Hematology
DX: S50.811A Abrasion of right forearm, initial encounter (principal); W45.0XXA Nail entering through skin, initial encounter
CPT/HCPCS: 90471; 99284; 99283

== ENCOUNTER 2019-12-31 14:40 | Outpatient (REF) | payer SELFPAY | END 2019-12-31 15:00 | LOC: NCHCN 14:40 | PROVIDERS: PCP Physician Assistant Medical; Visit Provider Nurse Practitioner Family | DX: N39.0 Urinary tract infection, site not specified (principal) | CPT/HCPCS: 87077; 87086; 87186 ==

== ENCOUNTER 2020-02-07 17:14 | Outpatient (REF) | payer SELFPAY ==
[2020-02-07 18:38] LABS: Abs Immature Grans 0.02 10^3/uL (0.0-0.06); Absolute Basophil Count 0.03 10^3/uL (0.0-0.2); Absolute Lymphocyte Count 1.96 10^3/uL (1.2-3.4); Absolute Monocyte Count 0.51 10^3/uL (0.1-0.8); Absolute Neutrophil Count 5.78 10^3/uL (1.2-6.7); Basophils % 0.4; Eosinophils % 1.2; HCT 39.6 % (36.0-46.0); HGB 13.2 g/dL (11.2-15.7); Immature Grans % 0.2; Lymphocytes % 23.3; MCH 29.5 pg (27.0-33.0); MCHC 33.3 % (32.0-36.0); MCV 88.4 fL (80-95); MPV 10.6 fL (8.0-11.0); Monocytes % 6.1; Neutrophils % 68.8; Nucleated RBC 0 %; Platelet Count 327 10^3/uL (130-400); RBC 4.48 10^6/uL (3.93-5.22); RDW 11.7 % (11.7-14.6); RDW-SD 37.6 fL
[2020-02-07 18:49] LABS: ALT 21 U/L (14-59); AST 20 U/L (15-37); Albumin 4.3 g/dL (3.4-5.0); Alkaline Phosphatase 77 U/L (46-116); Anion Gap 8.1 mmol/L (3-11); BUN 9 mg/dL (7-18); Bilirubin, Total 1.5 mg/dL (0.2-1.0); CO2 29.9 mmol/L (21.0-32.0); CREATININE 0.66 mg/dL (0.55-1.02); Calcium 9.4 mg/dL (8.5-10.1); Chloride 104 mmol/L (98-107); Glucose 92 mg/dL (74-106); Potassium 4.2 mmol/L (3.5-5.1); Sodium 142 mmol/L (136-145)
== END 2020-02-07 17:34 ==
LOC: NCHCN 17:14
PROVIDERS: PCP Physician Assistant Medical; Visit Provider Nurse Practitioner Family
DX: R07.89 Other chest pain (principal); R53.83 Other fatigue
CPT/HCPCS: 80053; 85025

== ENCOUNTER 2020-02-29 13:38 | Emergency (ER) | payer SELFPAY ==
[2020-02-29] VITALS (11 sets, daily range): BP systolic 92–126; BP diastolic 46–81; PULSE 57–108; RESP 9–25; TEMP 36.4; O2SAT 98–100
[2020-02-29] MEDS: diphenhydrAMINE 50 MG/ML VIAL (13:45)
[2020-02-29] MEDS: methylPREDNISolone SUCC 125 MG VIAL (13:45)
--- NOTE | 2020-02-29 13:47 | ED.GENADUL_ITS ---
Discharge Plan Disposition Patient Disposition: HOME Condition: Improving Discharge Details Clinical Impression: Allergic reaction to hymenoptera venom Primary Care Provider: Jacek Edward ED Provider: Agustin Ulloa Home Meds and New Rx's Prescriptions: New prednisone 20 mg tablet 40 mg PO DAILY 3 Days Qty: 6 RF: 0 epinephrine 0.3 mg/0.3 mL auto-injector 0.3 mg IM ONCE PRN (Reason: anaphylaxis) Qty: 1 RF: 0 Discontinued cephalexin [Keflex] 500 mg capsule 500 mg PO QID Qty: 39 RF: 0 Discharge Instructions Instructions: Insect Bite or Sting (ED), General Allergic Reaction (ED) Additional Instructions: May continue Benadryl 25 to 50 mg every 6 hours as needed for itching. Take prednisone as prescribed until finished. Return to the emergency department for any acute concerns. Medical Decision Making 34-year-old female who was stung in her chin by a wasp or bee when she put on her face mask. She developed diffuse itching hives and presented to the ER. She had taken 20 mg of Benadryl prior. IV placed, patient placed on a cardiac rehabilitation specialist, given Solu-Medrol, additional 25 mg of Benadryl, as well as famotidine. Observed in over approximate 2 hours time improved. I will prescribe her additional prednisone for its anti- inflammatory properties to prevent recrudescence of symptoms. She understands homecare. She will return as needed. EpiPen prescription provided and use discussed with patient. HPI General Mode of arrival: ambulatory . Date/Time Provider Initiated Documentation: 02/29/20 13:38 . Limitations to Documentation: no limitations . Information obtained by: patient . History of Present Illness 34 year old F presents to the emergency department with the chief complaint of Bee sting, itching, described as moderate, Quality is described as dull, and is localized to the neck, chest and abdomen. Patient started experiencing this minute(s) and it has been constant. No relieving factors improve symptom(s), No exacerbating factors reported . Patient notes denies shortness of breath and syncope. Patient did receive the following treatments prior to arrival, other (Benadryl 20 mg) Related Data Home Medications Medication Instructions Recorded Confirmed epinephrine 0.3 mg IM ONCE PRN #1 ea 02/29/20 prednisone 40 mg PO DAILY 3 Days #6 tab 02/29/20 Previous Rx's Medication Instructions Recorded epinephrine 0.3 mg IM ONCE PRN #1 ea 02/29/20 prednisone 40 mg PO DAILY 3 Days #6 tab 02/29/20 Allergies Allergy/AdvReac Type Severity Reaction Status Date / Time amoxicillin trihydrate AdvReac Intermediate diarrhea Unverified 11/05/19 18:53 [From Augmentin] Penicillins AdvReac Intermediate really bad Unverified 11/05/19 18:53 yeast infection potassium clavulanate AdvReac Intermediate diarrhea Unverified 11/05/19 18:53 [From Augmentin] General BETHANY: 4 Review of Systems Narrative: 6 systems reviewed and otherwise neg PFSH Social History Smoking/Tobacco Use Status: Never Alcohol Intake: current Alcohol Intake frequency: a few times a week Drug use: Occasionally Substance use type: marijuana Do you feel safe at home: Yes Do you feel safe in your relationship?: Yes Exam Narrative Exam Narrative: GEN: awake, alert, oriented 3. Pleasant, well groomed, interactive. HEAD: Normocephalic, atraumatic ENT: Mucous membranes moist, oropharynx unremarkable, External ear exam unremarkable. Probable envenomation site inferior chin EYES: PERRL, EOMI NECK: Full ROM, no TOYIN, no menigismus CHEST/RESP: Nontender, clear to auscultation bilateral, no wheeze/rhonchi/rales CARDIOVASCULAR: RRR, no murmur, rub juventino. 2+ Rad pulse bilateral Skin: Diffuse raised erythematous, blanching rash with wheals. ABDOMEN: Soft, nontender, no mass. +Bowel sounds EXT: Full ROM, no edema, no rash Neuro: Grossly normal neurologic exam, conversant, interactive. Psych: Speech fluent, thoughts congruent, affect normal
[2020-02-29] MEDS: FAMOTIDINE 20 MG/50 ML BAG 200 MG IVPB (13:50)
[2020-02-29] MEDS: Normal Saline 1,000 ML 1000 ML IV (13:55)
== END 2020-02-29 16:20 | disposition home or self-care (01) ==
PROVIDERS: Emergency Provider Emergency Medicine; PCP Physician Assistant Medical
DX: T63.441A Toxic effect of venom of bees, accidental (unintentional), initial encounter (principal); L50.0 Allergic urticaria; L29.9 Pruritus, unspecified
CPT/HCPCS: 36415; 96361; 96374; 96375; 99284; J1200; J2930

== ENCOUNTER 2020-10-07 12:04 | Outpatient (REF) | payer BC, SELFPAY | END 2020-10-07 12:05 | disposition home or self-care (01) | LOC: NCHCN 12:04 | PROVIDERS: PCP Physician Assistant Medical; Visit Provider Nurse Practitioner Family | DX: R35.0 Frequency of micturition (principal) | CPT/HCPCS: 87480; 87510; 87660 ==

== ENCOUNTER 2020-10-28 14:31 | Outpatient (REF) | payer BC, SELFPAY ==
--- NOTE | 2020-10-28 11:15 | PAPFT_PTH ---
PATIENT: Louise Castillo LOC: [facility] U#:[id number] AGE/SX: 34/F ROOM: RE10/28/[address]: Jacek Edward : 1985 BED: DIS: 10/28/2020 SPEC #: [id number] RECD: 10/28/20 15:39 STATUS: JOANNE PAIGE #: [id number] SCOT: 10/28/20 11:[address]: Jacek Edward DEPT: [facility] Cytology RECD BY: Zhanna Ruiz Tissues: 1 - CX/ENDOCX FOR PAP SMEARS Procedures: PAP THIN PREP/UVM Screening HPV DNA PROBE Comments: [id number]
== END 2020-10-28 14:32 | disposition home or self-care (01) ==
LOC: NCHCN 14:31
PROVIDERS: PCP Physician Assistant Medical; Visit Provider Physician Assistant Medical
DX: Z12.4 Encounter for screening for malignant neoplasm of cervix (principal); Z11.51 Encounter for screening for human papillomavirus (HPV)
CPT/HCPCS: 88142; 87624

== ENCOUNTER 2020-12-24 14:42 | Outpatient (REF) | payer BC, SELFPAY ==
[2020-12-26 10:50] LABS: Lyme Ab w Rflx to Lyme Confirm Negative (Negative)
== END 2020-12-24 14:43 | disposition home or self-care (01) ==
LOC: LBN 14:42
PROVIDERS: PCP Physician Assistant Medical; Visit Provider Physician Assistant Medical
DX: M54.2 Cervicalgia (principal); M54.9 Dorsalgia, unspecified
CPT/HCPCS: 86618

== ENCOUNTER 2021-01-20 10:50 | Outpatient (CLI) | payer BC, SELFPAY ==
[2021-01-20 13:50] LABS: Kit/Specimen SENT
== END 2021-01-20 10:51 | disposition home or self-care (01) ==
LOC: LBO 10:52
PROVIDERS: PCP Physician Assistant Medical; Visit Provider Naturopath
DX: R53.83 Other fatigue (principal); A69.20 Lyme disease, unspecified
CPT/HCPCS: 36415

== ENCOUNTER 2021-06-26 22:16 | Outpatient (REF) | payer BC, SELFPAY ==
[2021-06-28 15:41] LABS: COVID-19 RT-PCR UVMMC Result Negative (Negative)
== END 2021-06-26 22:17 | disposition home or self-care (01) ==
LOC: LBN 22:16
PROVIDERS: PCP Physician Assistant Medical; Visit Provider Physician Assistant Medical
DX: Z20.822 Contact with and (suspected) exposure to COVID-19 (principal); R09.89 Other specified symptoms and signs involving the circulatory and respiratory systems
CPT/HCPCS: U0003

== ENCOUNTER 2021-07-09 13:05 | Outpatient (REF) | payer BC, SELFPAY | END 2021-07-09 13:06 | disposition home or self-care (01) | LOC: NCHCN 13:05 | PROVIDERS: PCP Physician Assistant Medical; Visit Provider Nurse Practitioner Family | DX: R30.0 Dysuria (principal) | CPT/HCPCS: 87086 ==

== ENCOUNTER 2021-10-07 19:13 | Outpatient (REF) | payer BC, SELFPAY | END 2021-10-07 19:14 | disposition home or self-care (01) | LOC: NCHCN 19:13 | PROVIDERS: PCP Physician Assistant Medical; Visit Provider Physician Assistant Medical | DX: R10.2 Pelvic and perineal pain (principal) | CPT/HCPCS: 87491; 87591; 87480; 87510; 87660 ==

== ENCOUNTER 2021-11-18 01:15 | Outpatient (CLI) | payer BC, SELFPAY ==
--- NOTE | 2021-11-18 | DI.MRI_ITS ---
Exam(s) MR PELVIS WO/W EXAM: MR PELVIS WO/W CLINICAL HISTORY: OVARIAN CYST RT, N83.291 COMPARISON: Prior ultrasound examination 11/05/2021 FINDINGS: Multisequence MRI scan pelvis was performed both pre and post contrast sequences. Contrast injected was 13 mL Dotarem.. UTERUS: Retroverted. Endometrium is age-appropriate. Junctional zone unremarkable. No obvious fibr oids. OVARIES: There are multiple physiologic follicles noted in both ovaries. In the right ovary there is a 2 x 2 cm finding corresponds what was seen on ultrasound exam. This exhibits a 1 cm peripheral no dule which exhibits enhancement following contrast injection and also exhibits fat intensity on all s equences including signal decrease on fat suppression. Cul-de-sac: Small amount of free fluid OSSEOUS: No fractures. No osseous lesions. Hips appear unremarkable. Sacroiliac joints unremarkabl e. IMPRESSION: There is a 2 centimeter right ovarian dermoid, as described above. This contains fat and enhancing m ural nodule. Small amount of fluid in the cul-de-sac. DATA REPOSITORY:
[2021-11-18] MEDS: Normal Saline Flush 10 ML SYR IVP (15:01)
--- NOTE | 2021-11-18 18:40 | DI.VRAD_ITS ---
PROCEDURE INFORMATION: Exam: MR Pelvis Without and With Contrast Exam date and time: 11/18/2021 2:52 PM Age: 35 years old Clinical indication: Other: Unknown TECHNIQUE: Imaging protocol: Magnetic resonance images of the pelvis without and with intravenous contrast. Contrast material: DOTAREM; Contrast volume: 13 ml; Contrast route: INTRAVENOUS (IV); COMPARISON: US PELVIS TRANSVAGINAL 11/05/2021 1:08 PM FINDINGS: Intraperitoneal space: Small volume of physiologic fluid in the cul-de-sac. Reproductive: A round 2 cm fat containing mass identified in the right adnexal structures demonstrates a 1 cm peripheral mural nodule that enhances (series 6001, image 15 and series 30422, image 15). Hyperintense fat signal on T1 imaging of series 6001 drops out on the fat saturated pre and post gadolinium images series 8001 and 72332. Multiple bilateral physiologic follicles in both ovaries. Retroverted normal uterus. No endometrial thickening. The junctional zone is normal. Lymph nodes: No pelvic lymphadenopathy. Bones/joints: No osseous lesion. Soft tissues: Unremarkable. IMPRESSION: A 2 cm right ovarian dermoid. Dictated and Authenticated by: Cathy Bartlett MD. Ordering:DALLAS Read MD
== END 2021-11-18 01:35 ==
PROVIDERS: PCP Physician Assistant Medical; Visit Provider Physician Assistant Medical
DX: D27.0 Benign neoplasm of right ovary (principal)
CPT/HCPCS: 72197